=== PATIENT | female | born 1955 ===

== ENCOUNTER 2021-03-03 09:54 | Day surgery (SDC) | payer MEDICARE ==
[2021-03-03] MEDS ORDERED: Decadron 4 MG INJ IV ONE (09:55)
[2021-03-03] MEDS ORDERED: DIPRIVAN 200 MG/20 ML IV ONE (09:55)
[2021-03-03] MEDS ORDERED: LIDOCAINE HCL 2% 100 MG/5 ML IJ ONE (09:55)
[2021-03-03] MEDS ORDERED: TORAdol 30 mg Injection ONE (11:13)
[2021-03-03] MEDS ORDERED: Lactated Ringers 1,000 ML IV ONE (11:42)
--- NOTE | 2021-03-03 13:14 | XRAY ---
Indication: Right C2-C4 MBB. Intraoperative fluoroscopy provided for 29 seconds. 2 digital spot image submitted for interpretation demonstrates posterior needle tips projecting over the expected right C2-C4 nerve roots. Correlate with intraoperative findings/report.
--- NOTE | 2021-03-03 13:37 | XRAY ---
29 seconds fluoroscopy time in surgery for right C2-C4 MBB.
== END 2021-03-03 11:56 | disposition home or self-care (01) ==
LOC: SDC-PAIN 09:54
PROVIDERS: ATTEND Psychiatry & Neurology Pain Medicine
DX: M47.812 Spondylosis without myelopathy or radiculopathy, cervical region (principal); Z79.899 Other long term (current) drug therapy
CPT/HCPCS: 64490; 64491; 72040; 77002; J1100; J1885; J2704

== ENCOUNTER 2022-04-27 13:34 | Day surgery (SDC) | payer MEDICARE ==
[2022-04-27] MEDS ORDERED: LIDOCAINE HCL 1% 50 MG/5 ML VL PF IJ ONE (13:35)
[2022-04-27] MEDS ORDERED: Decadron 4 MG INJ IV ONE (13:35)
[2022-04-27] MEDS ORDERED: Marcaine Mpf 0.5% Vial 30 Ml IJ ONE (13:35)
[2022-04-27] MEDS ORDERED: DIPRIVAN 200 MG/20 ML IV ONE (15:35)
[2022-04-27] MEDS ORDERED: Lactated Ringers 1,000 ML IV ONE (16:06)
--- NOTE | 2022-04-27 17:13 | XRAY ---
Indication: Right C2-C4 RFA. Intraoperative fluoroscopy provided for 39 seconds. 3 digital spot image submitted for interpretation demonstrates posterior needle tips projecting over the expected right C2-C4 nerve roots. Correlate with intraoperative findings/report.
--- NOTE | 2022-04-27 17:21 | XRAY ---
39 seconds of fluoroscopy was used in surgery for a right C2-C4 RFA.
== END 2022-04-27 16:15 | disposition home or self-care (01) ==
LOC: SDC-PAIN 13:34
PROVIDERS: ATTEND Psychiatry & Neurology Pain Medicine
DX: M47.812 Spondylosis without myelopathy or radiculopathy, cervical region (principal); Z79.899 Other long term (current) drug therapy
CPT/HCPCS: 01939; 64633; 64634; 72040; 77002; J1100; J2001; J2704